=== PATIENT | female | born 1945 | race Caucasian/White ===

== ENCOUNTER 2018-01-22 11:21 | Observation (INO) ==
[2018-01-22 12:41] LABS: Basophils % 0.4 % (0.0-0.8); Eosinophils # 0.2 10*3/uL (0.0-0.87); Hematocrit 27.5 VOL% (35.7-47.0); Hemoglobin 8.3 GM/DL (12.0-16.0); Immature Granulocytes % 0.9 %; Immature Granulocytes Absolute 0.07 #; Lymphocytes # 1.7 10*3/uL (1.4-4.0); Lymphocytes % 21.2 % (21.3-54.2); Mean Corpuscular HGB Conc 30.2 GM/DL (32-36); Mean Corpuscular Hemoglobin 24 PG (27-34); Mean Corpuscular Volume 79.3 FL (87-102); Mean Platelet Volume 9.6 FL (9.6-12.0); Monocytes # 0.7 10*3/uL (0.11-0.8); Monocytes % 9.4 % (1.7-12.7); Neutrophils # 5.1 10*3/uL (1.4-7.4); Neutrophils % 65.1 % (38.7-73.9); Platelet Count 362 T/CUMM (130-400); Red Blood Count 3.47 MC/CUMM (3.8-5.5); Red Cell Distribution Width 15.3 % (9.3-17.3); White Blood Count 7.9 T/CUMM (4-12)
[2018-01-22] MEDS ORDERED: ACETAMINOPHEN 325 MG TABLET PO PRN (16:49)
[2018-01-22] MEDS ORDERED: DOCUSATE SODIUM 100 MG CAPSULE PO PRN (16:49)
[2018-01-22] MEDS ORDERED: ONDANSETRON 4 MG/2 ML VIAL IV PRN (16:49)
[2018-01-22] MEDS ORDERED: SODIUM CHLORIDE 0.9% 1,000 ML IV PRN (17:08)
[2018-01-22 17:44] LABS: % Iron Saturation 4.9 % (18-50); Ferritin 5.9 ng/ml (8-252)
[2018-01-22 17:54] LABS: Folate 21.1 NG/ML (5.4-24.0)
[2018-01-22] MEDS: amLODIPine 5 MG TABLET PO SCH (21:50)
[2018-01-22] MEDS: PANTOPRAZOLE 40 MG TABLET PO SCH (21:50)
[2018-01-22] MEDS: METOPROLOL TARTRATE 25 MG TABLET PO SCH (21:50)
[2018-01-22] MEDS: traZODone 50 MG TABLET PO PRN (21:50)
[2018-01-22] MEDS: ATORVASTATIN 40 MG TABLET PO SCH (21:50)
[2018-01-23 07:05] LABS: Basophils # 0.1 10*3/uL (0.0-0.2); Basophils % 0.8 % (0.0-0.8); Eosinophils # 0.4 10*3/uL (0.0-0.87); Eosinophils % 5.7 % (0.00-10.9); Hematocrit 33.9 VOL% (35.7-47.0); Hemoglobin 10.8 GM/DL (12.0-16.0); Immature Granulocytes % 0.5 %; Immature Granulocytes Absolute 0.03 #; Lymphocytes # 1.4 10*3/uL (1.4-4.0); Lymphocytes % 21.6 % (21.3-54.2); Mean Corpuscular HGB Conc 31.9 GM/DL (32-36); Mean Corpuscular Hemoglobin 26 PG (27-34); Mean Corpuscular Volume 81.3 FL (87-102); Mean Platelet Volume 9.4 FL (9.6-12.0); Monocytes # 0.7 10*3/uL (0.11-0.8); Monocytes % 11.3 % (1.7-12.7); Neutrophils # 3.9 10*3/uL (1.4-7.4); Neutrophils % 60.1 % (38.7-73.9); Platelet Count 293 T/CUMM (130-400); Red Blood Count 4.17 MC/CUMM (3.8-5.5); Red Cell Distribution Width 15.7 % (9.3-17.3); White Blood Count 6.4 T/CUMM (4-12)
[2018-01-23] MEDS ORDERED: LIDOCAINE 100 MG/5 ML SYRINGE ONE (09:00)
[2018-01-23] MEDS ORDERED: PROPOFOL 200 MG/20 ML VIAL IV ONE (09:00)
[2018-01-23 10:25] LABS: Calcium 8.7 MG/DL (8.5-10.1); Potassium 4.1 MMOL/L (3.5-5.1)
[2018-01-23] MEDS ORDERED: BISACODYL 5 MG TABLET PO ONE (12:00)
[2018-01-23] MEDS: PANTOPRAZOLE 40 MG TABLET PO SCH ×2 (14:45→20:57)
[2018-01-23] MEDS: METOPROLOL TARTRATE 25 MG TABLET PO SCH ×2 (14:45→20:57)
[2018-01-23] MEDS ORDERED: POLYETHYLENE GLYCOL POWDER 255 GM BOTTLE PO ONE (18:00)
[2018-01-23] MEDS: ATORVASTATIN 40 MG TABLET PO SCH (20:57)
[2018-01-23] MEDS: amLODIPine 5 MG TABLET PO SCH (20:57)
[2018-01-24] MEDS: traZODone 50 MG TABLET PO PRN (00:27)
[2018-01-24] MEDS ORDERED: MAGNESIUM CITRATE 300 ML BOTTLE PO ONE (06:00)
[2018-01-24 07:45] LABS: Basophils % 0.5 % (0.0-0.8); Eosinophils # 0.4 10*3/uL (0.0-0.87); Eosinophils % 5.8 % (0.00-10.9); Hematocrit 35.6 VOL% (35.7-47.0); Hemoglobin 11.5 GM/DL (12.0-16.0); Immature Granulocytes % 0.3 %; Immature Granulocytes Absolute 0.02 #; Lymphocytes # 1.4 10*3/uL (1.4-4.0); Lymphocytes % 22.7 % (21.3-54.2); Mean Corpuscular HGB Conc 32.3 GM/DL (32-36); Mean Corpuscular Hemoglobin 26 PG (27-34); Mean Corpuscular Volume 78.9 FL (87-102); Mean Platelet Volume 9.5 FL (9.6-12.0); Monocytes # 0.7 10*3/uL (0.11-0.8); Monocytes % 10.9 % (1.7-12.7); Neutrophils # 3.6 10*3/uL (1.4-7.4); Neutrophils % 59.8 % (38.7-73.9); Platelet Count 311 T/CUMM (130-400); Red Blood Count 4.51 MC/CUMM (3.8-5.5); Red Cell Distribution Width 15.9 % (9.3-17.3)
[2018-01-24 08:09] LABS: Calcium 8.9 MG/DL (8.5-10.1); Osmolality,Calculated 279.4 MOS/KG (273-304); Potassium 3.5 MMOL/L (3.5-5.1)
[2018-01-24] MEDS: PANTOPRAZOLE 40 MG TABLET PO SCH (10:09)
[2018-01-24] MEDS: METOPROLOL TARTRATE 25 MG TABLET PO SCH (10:09)
[2018-01-24] MEDS ORDERED: PROPOFOL 200 MG/20 ML VIAL IV ONE (13:00)
[2018-01-24] MEDS ORDERED: LIDOCAINE 2% 5 ML VIAL ONE (13:00)
[2018-01-24 13:51] VITALS: BP 121/62
== END 2018-01-24 15:01 | disposition home or self-care (01) ==
LOC: N.EDINP 11:21 → N.ED 11:21 → N.5E 15:12
PROVIDERS: ADMIT Internal Medicine; ATTEND Internal Medicine

== ENCOUNTER 2018-11-07 01:33 | Inpatient (IN) ==
[2018-11-07] MEDS ORDERED: BENZOCAINE/BUTAMBEN/TETRACAINE SPRAY 20 GM CAN TOP ONE (02:24)
[2018-11-07] MEDS ORDERED: ONDANSETRON 4 MG/2 ML VIAL IV PRN (04:23)
[2018-11-07] MEDS ORDERED: HYDROmorphone 2 MG/1 ML VIAL IV PRN (04:23)
[2018-11-07] MEDS ORDERED: PROMETHAZINE 25 MG/1 ML VIAL IM PRN (04:23)
[2018-11-07] MEDS ORDERED: SODIUM CHLORIDE 0.9% 1,000 ML IV SCH (04:30)
[2018-11-07 05:44] LABS: Basophils % 0.2 % (0.0-0.8); Eosinophils # 0.1 10*3/uL (0.0-0.87); Eosinophils % 0.7 % (0.00-10.9); Hematocrit 32.6 VOL% (35.7-47.0); Immature Granulocytes % 0.5 %; Immature Granulocytes Absolute 0.05 #; Lymphocytes # 1.5 10*3/uL (1.4-4.0); Lymphocytes % 15.9 % (21.3-54.2); Mean Corpuscular HGB Conc 30.7 GM/DL (32-36); Mean Corpuscular Hemoglobin 27 PG (27-34); Mean Corpuscular Volume 88.6 FL (87-102); Monocytes % 10.4 % (1.7-12.7); Neutrophils % 72.3 % (38.7-73.9); Platelet Count 216 T/CUMM (130-400); Red Blood Count 3.68 MC/CUMM (3.8-5.5); Red Cell Distribution Width 14.1 % (9.3-17.3); White Blood Count 9.7 T/CUMM (4-12)
[2018-11-07 06:06] LABS: Calcium 8.4 MG/DL (8.5-10.1); Osmolality,Calculated 280.5 MOS/KG (273-304); Potassium 3.7 MMOL/L (3.5-5.1)
[2018-11-07 06:21] LABS: Apearance,Urine CLEAR (Clear); Bilirubin,Urine Negative (Negative); Blood, Urine Small mg/dL (Negative); Glucose,Urine (UA) Negative (Negative); Hyaline Casts,Urine 1 /LPF (0-3); Ketones,Urine Negative (Negative); Mucus,Urine Occasional /LPF (Occasional); Nitrite,Urine Negative (Negative); Protein,Urine Negative; RBC,Urine 1 /HPF (0-4); Squamous Epithelial Cell,Urine Occasional /HPF (0-10); Urine Color Yellow (Yellow); Urine Specific Gravity 1.047 (1.001-1.035); Urine Urobilinogen < 2.0 EU/DL (0.2-1.0); WBC,Urine 1 /HPF (0-6)
[2018-11-07] MEDS ORDERED: hydrALAZINE 20 MG/1 ML VIAL IV PRN (11:40)
[2018-11-07] MEDS: cefOXitin 1,000 MG in SYRINGE 1 EACH IV SCH ×2 (13:16→21:41)
[2018-11-07] MEDS: ENOXAPARIN 40 MG/0.4 ML SYRINGE SUBCUT SCH (13:17)
[2018-11-07] MEDS: SODIUM CHLORIDE 0.45% 1,000 ML IV SCH (13:18)
[2018-11-07] MEDS ORDERED: PHENOL 1.4% THROAT SPRAY 177 ML BOTTLE PO PRN (20:41)
[2018-11-08] MEDS: cefOXitin 1,000 MG in SYRINGE 1 EACH IV SCH ×3 (05:31→20:22)
[2018-11-08] MEDS: SODIUM CHLORIDE 0.45% 1,000 ML IV SCH ×2 (09:21)
[2018-11-08] MEDS ORDERED: DEXTROSE 50% 25 GM/50 ML VIAL IV PRN (11:42)
[2018-11-08] MEDS ORDERED: GLUCAGON 1 MG VIAL IM PRN (11:42)
[2018-11-08] MEDS: DEXT 5% NACL 0.45% KCL 20 MEQ 20 MEQ/1,000 ML BAG IV SCH ×2 (12:28→20:22)
[2018-11-08] MEDS: ENOXAPARIN 40 MG/0.4 ML SYRINGE SUBCUT SCH (12:29)
[2018-11-09] MEDS: DEXT 5% NACL 0.45% KCL 20 MEQ 20 MEQ/1,000 ML BAG IV SCH ×3 (03:48→20:28)
[2018-11-09 04:10] LABS: Basophils % 0.2 % (0.0-0.8); Eosinophils # 0.2 10*3/uL (0.0-0.87); Eosinophils % 3.2 % (0.00-10.9); Hematocrit 27.7 VOL% (35.7-47.0); Hemoglobin 8.5 GM/DL (12.0-16.0); Immature Granulocytes % 0.2 %; Immature Granulocytes Absolute 0.01 #; Lymphocytes # 1.1 10*3/uL (1.4-4.0); Lymphocytes % 22.3 % (21.3-54.2); Mean Corpuscular HGB Conc 30.7 GM/DL (32-36); Mean Corpuscular Hemoglobin 27 PG (27-34); Mean Corpuscular Volume 88.8 FL (87-102); Mean Platelet Volume 10.1 FL (9.6-12.0); Monocytes # 0.6 10*3/uL (0.11-0.8); Neutrophils # 2.9 10*3/uL (1.4-7.4); Neutrophils % 61.1 % (38.7-73.9); Platelet Count 174 T/CUMM (130-400); Red Blood Count 3.12 MC/CUMM (3.8-5.5); Red Cell Distribution Width 13.9 % (9.3-17.3); White Blood Count 4.7 T/CUMM (4-12)
[2018-11-09 04:22] LABS: Calcium 8.1 MG/DL (8.5-10.1); Osmolality,Calculated 281.3 MOS/KG (273-304); Potassium 3.5 MMOL/L (3.5-5.1)
[2018-11-09 04:27] LABS: % Iron Saturation 9.9 % (18-50); Ferritin 15.6 ng/ml (8-252)
[2018-11-09 04:37] LABS: Folate 13.6 NG/ML (5.4-24.0); Vitamin B12 370 PG/ML (211-911)
[2018-11-09] MEDS: cefOXitin 1,000 MG in SYRINGE 1 EACH IV SCH ×3 (04:37→21:47)
[2018-11-09 05:14] LABS: Sedimentation Rate-Westergren 40 MM/HR (0-30)
[2018-11-09] MEDS: ENOXAPARIN 40 MG/0.4 ML SYRINGE SUBCUT SCH (12:09)
[2018-11-09] MEDS ORDERED: POTASSIUM CHLORIDE 20 MEQ TABLET PO ONE (17:21)
[2018-11-09] MEDS ORDERED: NITROGLYCERIN SL 0.4 MG TABLET SL SCH (17:30)
[2018-11-09] MEDS ORDERED: NITROGLYCERIN SL 0.4 MG TABLET SL PRN (17:31)
[2018-11-09] MEDS ORDERED: ASPIRIN EC 81 MG TABLET PO SCH (19:00)
[2018-11-09] MEDS: POLYETHYLENE GLYCOL POWDER 17 GM PACK PO SCH (20:29)
[2018-11-09] MEDS: FAMOTIDINE 20 MG TABLET PO SCH (20:29)
[2018-11-09] MEDS: DOCUSATE SODIUM 100 MG CAPSULE PO SCH (20:29)
[2018-11-09] MEDS: METOPROLOL TARTRATE 25 MG TABLET PO SCH (20:29)
[2018-11-09] MEDS ORDERED: traZODone 50 MG TABLET PO SCH (21:00)
[2018-11-10] MEDS: DEXT 5% NACL 0.45% KCL 20 MEQ 20 MEQ/1,000 ML BAG IV SCH (03:45)
[2018-11-10 04:48] LABS: Basophils % 0.2 % (0.0-0.8); Eosinophils # 0.2 10*3/uL (0.0-0.87); Eosinophils % 4.4 % (0.00-10.9); Hematocrit 26.9 VOL% (35.7-47.0); Hemoglobin 8.2 GM/DL (12.0-16.0); Immature Granulocytes % 0.2 %; Immature Granulocytes Absolute 0.01 #; Lymphocytes # 1.3 10*3/uL (1.4-4.0); Lymphocytes % 27.7 % (21.3-54.2); Mean Corpuscular HGB Conc 30.5 GM/DL (32-36); Mean Corpuscular Hemoglobin 27 PG (27-34); Mean Corpuscular Volume 89.4 FL (87-102); Mean Platelet Volume 10.4 FL (9.6-12.0); Monocytes # 0.6 10*3/uL (0.11-0.8); Monocytes % 13.7 % (1.7-12.7); Neutrophils # 2.4 10*3/uL (1.4-7.4); Neutrophils % 53.8 % (38.7-73.9); Platelet Count 165 T/CUMM (130-400); Red Blood Count 3.01 MC/CUMM (3.8-5.5); White Blood Count 4.5 T/CUMM (4-12)
[2018-11-10 05:02] LABS: Calcium 8.4 MG/DL (8.5-10.1); Potassium 4.1 MMOL/L (3.5-5.1)
[2018-11-10] MEDS: cefOXitin 1,000 MG in SYRINGE 1 EACH IV SCH (05:14)
[2018-11-10] MEDS: METOPROLOL TARTRATE 25 MG TABLET PO SCH (08:00)
[2018-11-10] MEDS: FAMOTIDINE 20 MG TABLET PO SCH (08:00)
[2018-11-10] MEDS: POLYETHYLENE GLYCOL POWDER 17 GM PACK PO SCH (08:00)
[2018-11-10] MEDS: DOCUSATE SODIUM 100 MG CAPSULE PO SCH (08:00)
[2018-11-10] MEDS ORDERED: CYANOCOBALAMIN 500 MCG TABLET PO SCH (09:00)
[2018-11-10] MEDS ORDERED: CIPROFLOXACIN INJ 400 MG in PREMIX 1 EACH IV SCH (09:00)
[2018-11-10 10:21] LABS: Hemoglobin A1 (Alkaline) 98.4 % (96.5-98.5); Hemoglobin A2 (Alkaline) 1.6 % (1.5-3.5)
[2018-11-10 11:53] VITALS: BP 137/69
[2018-11-10] MEDS: ENOXAPARIN 40 MG/0.4 ML SYRINGE SUBCUT SCH (13:08)
[2018-11-10] MEDS ORDERED: metroNIDAZOLE 250 MG TABLET PO SCH (15:00)
[2018-11-10] MEDS ORDERED: CIPROFLOXACIN 500 MG TABLET PO SCH (21:00)
== END 2018-11-10 13:23 | disposition home or self-care (01) | DRG 389 ==
LOC: EDUNIT# → EDBD → N.ED 01:33 → N.EDINP 04:22 → SUATTDRO 04:22 → N.5E 04:51
PROVIDERS: ADMIT Internal Medicine; ATTEND Hospitalist